=== PATIENT | male | born 1975 | race Caucasian/White ===

== ENCOUNTER → 2017-10-21 | Outpatient (CLI) | payer BC ==
--- NOTE | 2017-10-21 08:27 | MR ---
EXAMINATION TYPE: MR cervical spine wo con DATE OF EXAM: 10/21/2017 8:00 AM COMPARISON: NONE HISTORY: Cervicalgia, Radiculopathy, Santana Multiplanar MultiSpin echo imaging of the cervical spine was performed. Comparison: none C2-C3: No evidence for degenerative disc disease. No disc bulge/herniation or protrusion. No Canal stenosis. Foramina are patent bilaterally. C3-C4: No evidence for degenerative disc disease. No disc bulge/herniation or protrusion. No Canal stenosis. Foramina are patent bilaterally. C4-C5: There is evidence of mild disc desiccation. Circumferential disc bulge greatest posteriorly wi th mild effacement of the ventral thecal sac. No evidence for jason disc herniation or central stenos is. No cord contact. Visualized foramina are patent bilaterally. C5-C6: No evidence for degenerative disc disease. No disc bulge/herniation or protrusion. No Canal stenosis. Foramina are patent bilaterally. C6-C7: No evidence for degenerative disc disease. No disc bulge/herniation or protrusion. No Canal stenosis. Foramina are patent bilaterally. C7-T1: No evidence for degenerative disc disease. No disc bulge/herniation or protrusion. No Canal stenosis. Foramina are patent bilaterally. Cervical segments are intact. There is normal alignment. Cervical spinal cord is of normal signal. Craniovertebral junction relationships are within normal limits. IMPRESSION: 1. Degenerative disc disease and disc bulging at C4-5. Remaining levels are felt to be within normal limits.
== END | disposition home or self-care (01) ==
LOC: RADMRIMAIN 07:29
PROVIDERS: ATTEND Orthopaedic Surgery
DX: M50.121 Cervical disc disorder at C4-C5 level with radiculopathy (principal)
CPT/HCPCS: 72141

== ENCOUNTER → 2017-12-05 | Outpatient (CLI) | payer BC ==
--- NOTE | 2017-12-05 10:43 | MR ---
EXAMINATION TYPE: MR elbow LT wo con DATE OF EXAM: 12/05/2017 COMPARISON: NONE HISTORY: 42-year-old male with pain, Lateral epicondylitis, left elbow TECHNIQUE: Multiplanar, multisequence images of the left elbow were obtained without IV contrast. FINDINGS: There is abnormal thickening and heterogeneous signal of the distal biceps tendon especially the more proximal fibers which attach onto the radial tuberosity. A tiny 5 mm loculated fluid is present roxie minating along the tendon located 2.0 to 2.5 cm proximal to the insertion. Tenosynovial fluid trackin g along the distal biceps tendon. The common extensor tendon origin is mildly heterogeneous but shows a focal intrasubstance area of ab normal signal measuring 5 mm long by 6 mm AP at the epicondylar attachment. The underlying lateral collateral ligament appears grossly intact The ulnar collateral ligament is intact. Minimal intermediate signal at the common flexor origin pronator mass. The distal triceps tendon shows moderate patchy intermediate and increased signal. The ulnar nerve is mildly thickened within the sulcus pulmonary with cross-sectional area of 11.4 sq mm. The brachial artery and vein and adjacent median nerve are satisfactory. No focal cartilage defect. No bone marrow edema or hypertrophied synovium. Trace joint effusion withi n physiologic range. The surrounding subcutaneous soft tissues are otherwise unremarkable. IMPRESSION: 1. Common extensor tendinosis with a small 5 x 6 mm intrasubstance tear. 2. Mild common flexor tendinosis. 3. Partial tear of the distal biceps tendon, particularly involving the more proximally inserting zak g head fibers. Some reactive fluid tracking along the distal tendon. No retracted tear. 4. Moderate insertional triceps tendinosis. 5. Mild thickening of the ulnar nerve at the elbow suggests ulnar neuropathy. Clinically correlate.
== END | disposition home or self-care (01) ==
LOC: RADMRIMAIN 06:56
PROVIDERS: ATTEND Physical Medicine & Rehabilitation
DX: S46.112A Strain of muscle, fascia and tendon of long head of biceps, left arm, initial encounter (principal); S51.012A Laceration without foreign body of left elbow, initial encounter; M77.8 Other enthesopathies, not elsewhere classified